=== PATIENT | male | born 1985 ===

== ENCOUNTER 2025-07-16 10:34 | Emergency (ER) | payer OTHER ==
[2025-07-16 11:35] LABS: #Basophils 0.03 10x3/uL (0.0-0.2); #Eosinophils Less than 0.03 10x3/uL (0.0-0.7); #Monocytes 0.44 10x3/uL (0.11-0.59); #Neutrophils 2.06 10x3/uL (1.40-6.50); %Basophils 0.7 % (0.0-1.0); %Eosinophils 0.5 % (0.0-10.0); %Lymphocytes 39.8 % (21.0-51.0); %Monocytes 10.4 % (0.0-10.0); %Neutrophils 48.4 % (42.0-75.0); Hematocrit 36.6 % (42.0-52.0); Hemoglobin 12.4 g/dL (14.0-18.0); Mean Corpuscular Hemoglobin 32.0 pg (27.0-31.0); Mean Corpuscular Volume 94.3 fL (78.0-98.0); Platelet Count 140 10x3/uL (130-400); Red Blood Cell (RBC) Count 3.88 mill/uL (4.70-6.10); White Blood Cell (WBC) Count 4.25 10x3/uL (4.8-10.8)
[2025-07-16 12:00] LABS: ALT (SGPT) 46 U/L (Less than 45); AST (SGOT) 43 U/L (11-34); Albumin 1.9 g/dL (3.1-4.5); Alkaline Phosphatase 91 U/L (40-110); Anion Gap 16 mmol/L (10-20); BUN (Urea Nitrogen) 8 mg/dL (8.9-20.6); Bilirubin, Total 0.4 mg/dL (0.3-1.2); Calc. Creatinine Clearance 0 mL/min (70-130); Calcium 7.6 mg/dL (7.8-10.44); Carbon Dioxide 18 mmol/L (22-29); Chloride 115 mmol/L (98-107); Globulin 3.3 g/dL (2.4-3.5); Glucose 74 mg/dL (70-105); Potassium 3.0 mmol/L (3.5-5.1); Sodium 146 mmol/L (136-145)
[2025-07-16] MEDS ORDERED: Ketorolac Tromethamine 30 MG (1 mL) VIAL ONE (12:47)
[2025-07-16 13:51] LABS: Bacteria/HPF None Seen HPF (None Seen); CAUTI Indications for Culture Dysuria,urgency,freq; Glucose, Urine (Dipstick) Normal (Negative); Leukocyte Negative Leu/uL (Negative); Protein, Urine (Dipstick) Negative (Neg-Trace); RBC/HPF 0-3 HPF (0-3); Specific Gravity, Urine 1.018 (1.002-1.036); WBC/HPF 0-3 HPF (0-3)
[2025-07-16 13:54] LABS: Urine Culture Reflex No No
[2025-07-16 16:25] LABS: Actual Bicarbonate (HCO3v) 17.6 mEq/L (22-28); Base Excess -10.2 mEq/L (-2.0 to +3.0); Calcium, Ionized (venous) 1.15 mmol/L (1.16-1.32); Chloride (VBG) 110 mmol/L (98-106); Hematocrit-VBG 35 % (42.0-52.0); Hemoglobin (Hb) 12.0 g/dL (13.2-17.3); Potassium (VBG) 3.07 mmol/L (3.70-5.30); Sodium 143 mmol/L (133-146)
== END 2025-07-16 18:45 | disposition home or self-care (01) ==
LOC: ERS 10:34 → EEVIPCON 10:34 → ERS 18:45
DX: E87.20 Acidosis, unspecified (principal); K64.9 Unspecified hemorrhoids; R11.2 Nausea with vomiting, unspecified
CPT/HCPCS: 70450; 80053; 81001; 82805; 83605; 85025; 93005; 96361; 96374; J1885